=== PATIENT | female | born 1955 | race Caucasian/White ===

== ENCOUNTER 2018-02-13 17:58 | Observation (INO) ==
--- NOTE | 2018-02-13 21:30 | ED ---
HPI General Chief complaint: Psychiatric Symptoms Stated complaint: Psych Eval Time Seen by Provider: 02/13/18 21:14 History of Present Illness HPI narrative: 62-year-old female history of bipolar, dyslipidemia, GERD here for evaluation of altered mental status. Family at the bedside states patient has been aggressive, refusing to take her medications, uncooperative with family members, not living family to take care of her. She has history of stage III breast cancer and has a right sided Port-A-Cath but she currently refusing treatment. Family ran out of options and unable to take care of her at home and want to explore snf placement. Related Data Home Medications Medication Instructions Recorded Confirmed atorvastatin [Lipitor] 40 mg PO DAILY 02/13/18 02/13/18 benztropine 0.5 mg PO BID 02/13/18 02/13/18 fluoxetine 10 mg PO DAILY 02/13/18 02/13/18 hydroxyzine HCl 50 mg PO BID 02/13/18 02/13/18 hydroxyzine HCl 100 mg PO HS 02/13/18 02/13/18 lithium carbonate 300 mg TID 02/13/18 02/13/18 olanzapine 20 mg PO BID 02/13/18 02/13/18 ondansetron HCl [Zofran] 8 mg PO TID PRN 02/13/18 02/13/18 ranitidine HCl 150 mg PO BID 02/13/18 02/13/18 Previous Rx's Medication Instructions Recorded quetiapine [Seroquel] 25 mg PO BID #60 tab 02/15/18 Allergies Allergy/AdvReac Type Severity Reaction Status Date / Time trihexyphenidyl Allergy Severe Unverified 12/27/16 12:51 ARTANE Allergy Unknown Uncoded 01/20/03 17:18 NKA Allergy Unknown Uncoded 01/20/03 17:18 Review of Systems ROS: all other systems reviewed are negative [facility] Social History Social History Substance History: No History of Abuse Second Hand Smoke Exposure: No Smoking Status: Former smoker How Often Do You Have a Drink Containing Alcohol: Never Recent Travel in [facility] within the Last 8 Weeks: No Recent Out of Country Travel within the Last 8 Weeks: No Immunization History Tetanus Immunization: Unsure Hx Influenza Vaccine This Season: No Exam Narrative Exam Narrative: GENERAL: Loud, screaming in the ER, uncooperative. SKIN: Focused skin assessment warm/dry. HEAD: Atraumatic. Normocephalic. EYES: Pupils equal and round. No scleral icterus. No injection or drainage. ENT: No nasal bleeding or discharge. Mucous membranes pink and moist. NECK: Trachea midline. No JVD. CARDIOVASCULAR: Regular rate and rhythm. No murmur appreciated. RESPIRATORY: No accessory muscle use. Clear to auscultation. Breath sounds equal bilaterally. GASTROINTESTINAL: Abdomen soft, non-tender, nondistended. Hepatic and splenic margins not palpable. MUSCULOSKELETAL: No obvious deformities. No clubbing. No cyanosis. No edema. NEUROLOGICAL: Awake and alert. No obvious cranial nerve deficits. Motor grossly within normal limits. Normal speech. PSYCHIATRIC: Appropriate mood and affect; insight and judgment normal. Course Initial Documented Vital Signs Temperature 98.1 F 02/13/18 18:31 Pulse Rate 83 02/13/18 18:31 Respiratory Rate 19 02/13/18 18:31 Blood Pressure 133/59 L 02/13/18 18:31 Pulse Oximetry 98 02/13/18 18:31 Last Documented Vital Signs Temperature 98.7 F 02/15/18 15:46 Pulse Rate 91 H 02/15/18 15:46 Respiratory Rate 20 02/15/18 15:46 Blood Pressure 104/67 02/15/18 15:46 Pulse Oximetry 97 02/15/18 15:46 Medical Decision Making MDM Narrative Medical decision making narrative: 62 female here for snf placement, case management consult is done awaiting placement. 0900-In to see patient, she is telling me she "lost her other port and they can' t find it". She is delusional, but pleasant. Ate breakfast. PT request placed per case management request 11:55- Spoke with Dr. Cash Knox who placed Bedded outpatient request. 1313- Pt here for evaluation Medical Screen Exam Complete: Yes Emergency Medical Condition: Yes Lab Data Result diagrams: 02/13/18 21:56 02/13/18 21:56 Lab Results 02/13/18 02/13/18 02/13/18 Range/Units 21:56 21:56 21:56 WBC 5.0 (4.0-11.0) th/mm3 RBC 3.08 L (4.00-5.30) mil/mm3 Hgb 9.2 L (11.6-15.3) gm/dL Hct 27.7 L (35.0-46.0) % MCV 89.9 (80.0-100.0) fL MCH 30.0 (27.0-34.0) pg MCHC 33.3 (32.0-36.0) % RDW 14.1 (11.6-17.2) % Plt Count 192 (150-450) th/mm3 MPV 8.3 (7.0-11.0) fL Prelim Diff (Auto) Slide review pending Neut % (Auto) 68.7 (16.0-70.0) % Lymph % (Auto) 18.5 (9.0-44.0) % [place] % (Auto) 10.1 H (0.0-8.0) % Eos % (Auto) 1.8 (0.0-4.0) % Baso % (Auto) 0.9 (0.0-2.0) % Neut # (Auto) 3.5 (1.8-7.7) th/mm3 Lymph # (Auto) 0.9 L (1.0-4.8) th/mm3 [place] # (Auto) 0.5 (0.0-0.9) th/mm3 Eos # (Auto) 0.1 (0.0-0.4) th/mm3 Baso # (Auto) 0.0 (0.0-0.2) th/mm3 WBC Differential Manual diff final Seg Neuts % (Manual) 58 (16-70) % Band Neuts % (Manual) 10 H (0-6) % Lymphocytes % (Manual) 20 (9-44) % Monocytes % (Manual) 11 H (0-8) % Eosinophils % (Manual) 1 (0-4) % Abs Neuts (Manual) 3.4 (1.8-7.7) th/mm3 Differential Comment . Toxic Granulation 1+ H (None) Dohle Bodies Present H (None) Platelet Estimate Normal (Normal) Platelet Morphology Normal (Normal) Ovalocytes 1+ H (None) Keratocytes Occ H (None) PT 10.5 (9.8-11.6) sec INR 1.0 Ratio APTT 24.2 L (24.3-30.1) sec Sodium 139 (136-145) meq/L Potassium 3.6 (3.5-5.1) meq/L Chloride 106 (98-107) meq/L Carbon Dioxide 25.7 (21.0-32.0) meq/L Anion Gap 7 (5-15) meq/L BUN 8 (7-18) mg/dL Creatinine 0.77 (0.50-1.00) mg/dL Estimated GFR 76 L (>89) mL/min Random Glucose 173 H (74-106) mg/dL Calcium 8.3 L (8.5-10.1) mg/dL Total Bilirubin 0.2 (0.2-1.0) mg/dL AST 10 L (15-37) U/L ALT 16 (10-53) U/L Alkaline Phosphatase 105 (45-117) U/L Ammonia (11-32) mcmol/L Total Protein 6.9 (6.4-8.2) g/dL Albumin 3.6 (3.4-5.0) g/dL TSH 4.270 H (0.358-3.740) uIU/mL Urine Color (Yellw/Straw) Urine Clarity (Clear) Urine pH (5.0-8.5) Ur Specific [place] (1.002-1.035) Urine Protein (Neg-Trace) mg/dL Urine Glucose (UA) (Negative) mg/dL Urine Ketones (Negative) mg/dL Urine Occult Blood (Negative) Urine Nitrate (Negative) Urine Bilirubin (Negative) Urine Urobilinogen (Less than 2) mg/dL Ur Leukocyte Esterase (Negative) Urine WBC (0-5) /hpf Ur Squamous Epith Cells (0-5) /hpf Hyaline Casts (0-3) /lpf Micro UA Comment Ur Microscopic Review Urine Culture Comments Rice (0.5-1.5) meq/L 02/13/18 02/13/18 02/13/18 Range/Units 21:56 21:56 21:56 WBC (4.0-11.0) th/mm3 RBC (4.00-5.30) mil/mm3 Hgb (11.6-15.3) gm/dL Hct (35.0-46.0) % MCV (80.0-100.0) fL MCH (27.0-34.0) pg MCHC (32.0-36.0) % RDW (11.6-17.2) % Plt Count (150-450) th/mm3 MPV (7.0-11.0) fL Prelim Diff (Auto) Neut % (Auto) (16.0-70.0) % Lymph % (Auto) (9.0-44.0) % [place] % (Auto) (0.0-8.0) % Eos % (Auto) (0.0-4.0) % Baso % (Auto) (0.0-2.0) % Neut # (Auto) (1.8-7.7) th/mm3 Lymph # (Auto) (1.0-4.8) th/mm3 [place] # (Auto) (0.0-0.9) th/mm3 Eos # (Auto) (0.0-0.4) th/mm3 Baso # (Auto) (0.0-0.2) th/mm3 WBC Differential Seg Neuts % (Manual) (16-70) % Band Neuts % (Manual) (0-6) % Lymphocytes % (Manual) (9-44) % Monocytes % (Manual) (0-8) % Eosinophils % (Manual) (0-4) % Abs Neuts (Manual) (1.8-7.7) th/mm3 Differential Comment Toxic Granulation (None) Dohle Bodies (None) Platelet Estimate (Normal) Platelet Morphology (Normal) Ovalocytes (None) Keratocytes (None) PT (9.8-11.6) sec INR Ratio APTT (24.3-30.1) sec Sodium (136-145) meq/L Potassium (3.5-5.1) meq/L Chloride (98-107) meq/L Carbon Dioxide (21.0-32.0) meq/L Anion Gap (5-15) meq/L BUN (7-18) mg/dL Creatinine (0.50-1.00) mg/dL Estimated GFR (>89) mL/min Random Glucose (74-106) mg/dL Calcium (8.5-10.1) mg/dL Total Bilirubin (0.2-1.0) mg/dL AST (15-37) U/L ALT (10-53) U/L Alkaline Phosphatase (45-117) U/L Ammonia 24 (11-32) mcmol/L Total Protein (6.4-8.2) g/dL Albumin (3.4-5.0) g/dL TSH (0.358-3.740) uIU/mL Urine Color Straw (Yellw/Straw) Urine Clarity Clear (Clear) Urine pH 7.0 (5.0-8.5) Ur Specific [place] 1.004 (1.002-1.035) Urine Protein Negative (Neg-Trace) mg/dL Urine Glucose (UA) Negative (Negative) mg/dL Urine Ketones Negative (Negative) mg/dL Urine Occult Blood Negative (Negative) Urine Nitrate Negative (Negative) Urine Bilirubin Negative (Negative) Urine Urobilinogen Less than 2 (Less than 2) mg/dL Ur Leukocyte Esterase Trace H (Negative) Urine WBC 4 (0-5) /hpf Ur Squamous Epith Cells <1 (0-5) /hpf Hyaline Casts 1 (0-3) /lpf Micro UA Comment Culture not ind Ur Microscopic Review Not Reportable Urine Culture Comments Culture not ind Rice 0.9 (0.5-1.5) meq/L Imaging Data Radiologist's impression: Chest X-Ray 02/14/18 00:18 CONCLUSION: 1. No acute cardiopulmonary disease. Discharge Plan Discharge Disposition Patient Disposition: 30 Still Patient Discharge Condition Condition: Stable Discharge Order Discharge Orders: Discharge Order (Routine); Ordered 02/15/18 Ordered By: Eduardo Hager Discharge Details Anticipated Discharge Date: 02/15/18 Physicians Team ED Provider: Joselito Edgar ED Midlevel Provider: Cher Calderón Primary Care Provider: UNKNOWN, Attending Provider: Eduardo Hager Other Providers: Willy,Willy ; Eduardo Hager ; [facility]Ag[facility] ; Giselle Ivey Fernando B Status ED Status: Left Department Discharge Information Discharge Date/Time: 02/14/18 13:55
[2018-02-13 22:38] LABS: Bilirubin,Urine Negative (Negative); Clarity,Urine Clear (Clear); Color,Urine Straw (Yellw/Straw); Glucose,Urine (UA) Negative (Negative); Hyaline Casts,Urine 1 /lpf (0-3); Leukocyte Esterase,Urine Trace (Negative); Nitrite,Urine Negative (Negative); Specific Gravity,Urine 1.004 (1.002-1.035); Squamous Epithelial Cell,Urine <1 /hpf (0-5)
[2018-02-13 22:42] LABS: Baso % (Auto) 0.9 % (0.0-2.0); Eos # (Auto) 0.1 th/mm3 (0.0-0.4); Eos % (Auto) 1.8 % (0.0-4.0); Hematocrit 27.7 % (35.0-46.0); Hemoglobin 9.2 gm/dL (11.6-15.3); Lymph # (Auto) 0.9 th/mm3 (1.0-4.8); Lymph % (Auto) 18.5 % (9.0-44.0); Mean Corpuscular HGB Conc 33.3 % (32.0-36.0); Mean Corpuscular Volume 89.9 fL (80.0-100.0); Mean Platelet Volume 8.3 fL (7.0-11.0); Mono # (Auto) 0.5 th/mm3 (0.0-0.9); Mono % (Auto) 10.1 % (0.0-8.0); Neut # (Auto) 3.5 th/mm3 (1.8-7.7); Neut % (Auto) 68.7 % (16.0-70.0); Platelet Count 192 th/mm3 (150-450); Red Blood Count 3.08 mil/mm3 (4.00-5.30); Red Cell Distribution Width 14.1 % (11.6-17.2)
[2018-02-13 22:46] LABS: Alanine Aminotransferase 16 U/L (10-53); Albumin 3.6 g/dL (3.4-5.0); Anion Gap 7 meq/L (5-15); Aspartate Aminotransferase 10 U/L (15-37); Blood Urea Nitrogen 8 mg/dL (7-18); Calcium 8.3 mg/dL (8.5-10.1); Carbon Dioxide 25.7 meq/L (21.0-32.0); Chloride 106 meq/L (98-107); Glomerular Filtration Rate 76 mL/min (>89); Glucose,Random 173 mg/dL (74-106); Potassium 3.6 meq/L (3.5-5.1); Sodium 139 meq/L (136-145)
[2018-02-13 22:57] LABS: Alkaline Phosphatase 105 U/L (45-117); Total Protein 6.9 g/dL (6.4-8.2)
[2018-02-13 23:31] LABS: Eosinophils 1 % (0-4); Lymphocytes 20 % (9-44); Monocytes 11 % (0-8)
[2018-02-13 23:32] LABS: Platelet Estimate Normal (Normal); Platelet Morphology Normal (Normal)
[2018-02-13 23:33] LABS: Dohle Bodies Present; Ovalocytes 1+; Toxic Granulation 1+
[2018-02-14 00:04] LABS: Activated Partial Thrombo Time 24.2 sec (24.3-30.1); Prothrombin Time 10.5 sec (9.8-11.6)
--- NOTE | 2018-02-14 00:40 | XR ---
EXAM DATE: 02/14/2018 12:18 AM EDT AGE/SEX: 62 years / Female INDICATIONS: Altered mental status. CLINICAL DATA: This is the patient's initial encounter. Patient reports that signs and symptoms have been present for 1 day and indicates a pain score of Nonresponsive. MEDICAL/SURGICAL HISTORY: Carcinoma, breast. . Infusaport. COMPARISON: No prior exams available for comparison. FINDINGS: A single AP view of the chest demonstrates the lungs to be symmetrically aerated without evidence of mass, infiltrate or effusion. Right subclavian [id number] with tip in the central SVC. The cardiom ediastinal contours are unremarkable. Osseous structures are intact. CONCLUSION: 1. No acute cardiopulmonary disease. Electronically signed by: Josep Villegas MD 02/14/2018 12:38 AM EDT
[2018-02-14] MEDS ORDERED: Acetaminophen 325 MG Tablet PO PRN (11:52)
[2018-02-14] MEDS ORDERED: Bisacodyl 10 MG Supp RECTAL PRN (11:52)
--- NOTE | 2018-02-14 19:41 | P.CON ---
History of Present Illness Service: Hospitalist Reason for Consult: Placement Primary Care Provider: UNKNOWN History of Present Illness: Ms. Roberts is a pleasant 62-year-old female history of bipolar, dyslipidemia, GERD here for evaluation of altered mental status. I could not get much history from patient. Apparently, she has a history of stage III breast cancer, she has a port as well. She has refused treatments so far. Family is not able to take care of her and thus want her to be placed at a [facility]. Patient is currently hemodynamically stable. She is talking to herself but remains pleasant. No aggressive behavior. Review of Systems unobtainable due to mental condition PMFSH - History History Provided By: Patient, Family Member - Medical History Medical History: Medical History (Last Reviewed 02/14/18 @ 19:53 by Eduardo Hager DO) Breast cancer High cholesterol Port-A-Cath in place Schizophrenia - Surgical History Surgical History: Surgical History (Last Reviewed 02/14/18 @ 19:53 by Eduardo Hager DO) Hx of section - Tobacco History Second Hand Smoke Exposure: No Smoking Status: Former smoker - Alcohol History How Often Do You Have a Drink Containing Alcohol: Never - Substance Use History Substance History: No History of Abuse - Travel History Recent Travel in the [place] Within the Last 8 Weeks: No Recent Travel Out of the Country Within the Last 8 Weeks: No - Immunization History Tetanus Immunization: Unsure Hx Influenza Vaccine This Season: No Medications and Allergies Active Medications: Active Medications Acetaminophen (Tylenol) 650 mg PO Q4H PRN PRN Reason: Headache, fever, pain 1-4 Al Hydroxide/Mg Hydroxide (Milk Of Magnesia Liq) 30 ml PO Q12H PRN PRN Reason: Mild Constipation Bisacodyl (Dulcolax Supp) 10 mg RECTAL DAILY PRN PRN Reason: SEVERE CONSITIPATION Lactulose (Lactulose Liq) 30 ml PO DAILY PRN PRN Reason: SEVERE CONSITIPATION Ondansetron HCl (Zofran Inj) 4 mg IV.PUSH Q6H PRN PRN Reason: NAUSEA OR VOMITING Sennosides (Senokot) 17.2 mg PO Q12H PRN PRN Reason: Moderate Constipation Allergies Allergy/AdvReac Type Severity Reaction Status Date / Time trihexyphenidyl Allergy Severe Unverified 12/27/16 12:51 ARTANE Allergy Unknown Uncoded 01/20/03 17:18 NKA Allergy Unknown Uncoded 01/20/03 17:18 Home Medications Medication Instructions Recorded Confirmed Type atorvastatin [Lipitor] 40 mg PO DAILY 02/13/18 02/13/18 History benztropine 0.5 mg PO BID 02/13/18 02/13/18 History fluoxetine 10 mg PO DAILY 02/13/18 02/13/18 History hydroxyzine HCl 50 mg PO BID 02/13/18 02/13/18 History hydroxyzine HCl 100 mg PO HS 02/13/18 02/13/18 History lithium carbonate 300 mg TID 02/13/18 02/13/18 History olanzapine 20 mg PO BID 02/13/18 02/13/18 History ondansetron HCl [Zofran] 8 mg PO TID PRN 02/13/18 02/13/18 History ranitidine HCl 150 mg PO BID 02/13/18 02/13/18 History Physical Exam Vital signs: Vital Signs 02/14/18 08:18 02/14/18 15:51 Temperature 98.8 F Pulse Rate 74 78 Respiratory Rate 20 16 Blood Pressure 108/63 98/71 L Pulse Oximetry 98 98 Intake & Output 02/14/18 02/14/18 02/15/18 06:59 18:59 06:59 Intake Total 480 / 480 Balance 480 / 480 Weight 66.224 kg Intake: Oral 480 / 480 Other: # Voids 1 Weight On Admission 66.224 kg Narrative: GENERAL: Alert, oriented to self. Left sided chest port present. SKIN: Warm and dry. HEAD: Normocephalic. EYES: No scleral icterus. No injection or drainage. NECK: Supple, trachea midline. No JVD or lymphadenopathy. CARDIOVASCULAR: Regular rate and rhythm without murmurs, gallops, or rubs. RESPIRATORY: Breath sounds equal bilaterally. No accessory muscle use. GASTROINTESTINAL: Abdomen soft, non-tender, nondistended. MUSCULOSKELETAL: No cyanosis, or edema. BACK: Nontender without obvious deformity. No CVA tenderness. Assessment and Plan - Plan Ms. Roberts is a 62 year old female with a history of psychiatric disorders, breast cancer who was brought to the ED because family is unable to take care of her. Bipolar disorder History of Stage III breast cancer Family unable to take care of patient - Case management is working on possible placement - Will consult palliative care. - Hospice at a ch[facility] maybe an option for this patient. Full code. Will follow this patient PRN.
--- NOTE | 2018-02-15 11:19 | P.CONPAL ---
Consult Service: Palliative Care Requesting Physician: Eduardo Hager Reason for Consult: a. To assist with evaluation and management of symptoms including: Confusion, agitation b. To assist medical decision maker(s) with: better understanding of current medical conditions; weighing benefits/burdens of medical treatment options; making medical treatment decisions. Primary Care Provider: UNKNOWN History of Present Illness History of Present Illness: This is a 62-year old female brought to the emergency room by her family with a history of schizophrenia, hyperlipidemia, GERD and stage III breast cancer followed by Dr. Pierre in [place] who has lived in facilities for the past 40 years. She was recently in an [facility] that closed and she has been living with her daughter for the past month. Her daughter reports that she has started to refuse medications and become aggressive with the family, refusing to allow them to help take care of her. They can no longer manage her and home and are seeking placement in a snf facility as her needs have increased beyond the scope of an [facility]. Per my discussion with her sister, Jackie, she had a reasonably normal childhood but late in her teens became involved in heavy drug use which apparently caused permanent damage. Her sister states she has been diagnosed with schizophrenia by Dr. Aldana at [facility] back in 2008. She was previously treated at the [facility] as an inpatient and has been stable at the facility for some years on benztropine 0.5 mg twice daily, fluoxetine 10 mg daily, hydroxyzine 50 mg twice daily and 100 mg at bedtime, lithium carbonate 300 mg 3 times daily and olanzapine 20 mg p.o. twice daily. She had been under treatment for the breast cancer with chemotherapy but became unhappy with the side effects and symptoms of nausea, vomiting diarrhea and hair loss. She stated she no longer wished to take chemotherapy and the family has been compliant with that request. She has since started to refuse her oral psychotropic medications which has exacerbated her aggression and altered mental status at home. Clinical findings on admission: * WBC 5.0, hemoglobin 9.2, hematocrit 27.7, platelets 192, prothrombin time 10.5 , INR 1.0, APTT 24.2, sodium 139, potassium 3.6, BUN 8, creatinine 0.77, random glucose 173, calcium 8.3, total bilirubin 0.2, AST 10, ALT 16, alk phos 105, total protein 6.9, albumin 3.6, TSH 4.270, urinalysis was negative for any signs of infection, culture not indicated, lithium 0.9. * Chest x-ray showed no acute cardiopulmonary disease. Past medical history Hyperlipidemia Prediabetes Breast cancer stage III Schizophrenia Past surgical history section x2 Tonsillectomy Social history Quit smoking about 2 years ago but has smoked 1 pack/day since she was a teenager. Heavy illicit drug use in her late teens early 20s but has been in a facility since that time with no illicit drug use. Heavy alcohol use in her late teens and early 20s with no use since that time. Family history mother at age 59 from COPD Father in his mid to late 70s end-stage renal disease and cardiovascular disease. . Function/Cognitive Trajectory: Cognitive and behavioral function took a sharp decline in her 20s secondary to heavy drug abuse and she has remained altered since. She has been living in an assisted living facility for many years as she has been judged by psychiatry to be not capacitated for decision-making. She had been receiving treatment for breast cancer but has stopped approximately 1 month ago secondary to the adverse symptoms of nausea, vomiting, diarrhea and hair loss. . Review of Systems Patient is confused and the ROS may be unreliable. A 12 part ROS taken as best as possible from medical record and available family. Neurologic: Reports confusion Psychiatric: Reports irritability PMFSH - History History Provided By: Patient, Family Member - Medical History Medical History: Medical History (Last Reviewed 02/15/18 @ 09:09 by Shun Royal) Breast cancer High cholesterol Port-A-Cath in place Schizophrenia - Surgical History Surgical History: Surgical History (Last Reviewed 02/15/18 @ 09:09 by Shun Royal) Hx of section - Tobacco History Second Hand Smoke Exposure: No Smoking Status: Former smoker - Alcohol History How Often Do You Have a Drink Containing Alcohol: Never - Substance Use History Substance History: No History of Abuse - Travel History Recent Travel in the [place] Within the Last 8 Weeks: No Recent Travel Out of the Country Within the Last 8 Weeks: No - Immunization History Tetanus Immunization: Unsure Hx Influenza Vaccine This Season: No Medications and Allergies Active Medications: Active Medications Acetaminophen (Tylenol) 650 mg PO Q4H PRN PRN Reason: Headache, fever, pain 1-4 Al Hydroxide/Mg Hydroxide (Milk Of Magnesia Liq) 30 ml PO Q12H PRN PRN Reason: Mild Constipation Bisacodyl (Dulcolax Supp) 10 mg RECTAL DAILY PRN PRN Reason: SEVERE CONSITIPATION Lactulose (Lactulose Liq) 30 ml PO DAILY PRN PRN Reason: SEVERE CONSITIPATION Ondansetron HCl (Zofran Inj) 4 mg IV.PUSH Q6H PRN PRN Reason: NAUSEA OR VOMITING Sennosides (Senokot) 17.2 mg PO Q12H PRN PRN Reason: Moderate Constipation Allergies Allergy/AdvReac Type Severity Reaction Status Date / Time trihexyphenidyl Allergy Severe Unverified 12/27/16 12:51 ARTANE Allergy Unknown Uncoded 01/20/03 17:18 NKA Allergy Unknown Uncoded 01/20/03 17:18 Home Medications Medication Instructions Recorded Confirmed Type atorvastatin [Lipitor] 40 mg PO DAILY 02/13/18 02/13/18 History benztropine 0.5 mg PO BID 02/13/18 02/13/18 History fluoxetine 10 mg PO DAILY 02/13/18 02/13/18 History hydroxyzine HCl 50 mg PO BID 02/13/18 02/13/18 History hydroxyzine HCl 100 mg PO HS 02/13/18 02/13/18 History lithium carbonate 300 mg TID 02/13/18 02/13/18 History olanzapine 20 mg PO BID 02/13/18 02/13/18 History ondansetron HCl [Zofran] 8 mg PO TID PRN 02/13/18 02/13/18 History ranitidine HCl 150 mg PO BID 02/13/18 02/13/18 History Advance Directives Living Will: Yes Healthcare Surrogate: Yes Health Care Surrogate Name and Number: Erica Galaviz (daughter), chase Galaviz Physical Exam Vital Signs: Vital Signs - 24 hr 02/14/18 15:51 02/15/18 00:00 02/15/18 04:00 Temperature 98.8 F 97.6 F 98.7 F Pulse Rate 78 65 70 Respiratory Rate 16 18 16 Blood Pressure 98/71 L 93/50 L 92/56 L Pulse Oximetry 98 96 94 L 02/15/18 07:41 Temperature 98.3 F Pulse Rate 63 Respiratory Rate 16 Blood Pressure 81/45 L Pulse Oximetry 96 I&O: Intake & Output 02/13/18 02/14/18 02/15/18 02/16/18 06:59 06:59 06:59 06:59 Intake Total 480 / 480 Output Total 200 / 200 Balance 280 / 280 Weight 146 lb 146 lb 2.664 oz Physical Exam: CONSTITUTIONAL/GENERAL: This is a thin patient lying in bed with the emesis bag up to her mouth, in no acute distress. TUBES/LINES/DRAINS: PIV SKIN: No jaundice, rashes, or lesions. Ecchymoses on upper extremities. No wounds seen anteriorly. Skin temperature appropriate. Not diaphoretic. HEAD: Atraumatic. Normocephalic. EYES: Pupils equal and round and reactive. Extraocular motions intact. No scleral icterus. No injection or drainage. Fundi not examined. ENT: Hearing grossly normal. Nose without bleeding or purulent drainage. Throat without visible erythema, exudates, masses, or lesions. NECK: Trachea midline. Supple, nontender. No palpable thyroid enlargement or nodularity. CARDIOVASCULAR: Regular rate and rhythm without murmurs, gallops, or rubs. No JVD. Peripheral pulses symmetric. RESPIRATORY/CHEST: Symmetric, unlabored respirations. Clear to auscultation. Breath sounds equal bilaterally. No wheezes, rales, or rhonchi. GASTROINTESTINAL: Abdomen soft, non-tender, nondistended. No hepato-splenomegaly , or palpable masses. No guarding. Bowel sounds present. GENITOURINARY: Without palpable bladder distension. MUSCULOSKELETAL: Extremities without clubbing, cyanosis, or edema. No joint tenderness or effusion noted. No calf tenderness. No mottling or clubbing. LYMPHATICS: No palpable cervical or supraclavicular adenopathy. NEUROLOGICAL: Awake and alert. Motor and sensory grossly within normal limits. Follows commands. Oriented to self. Answers to questions make no sense. PSYCHIATRIC: Smiling, animated, cooperative. . Diagnostic Tests Laboratory: Laboratory Results - last 72 hr 02/13/18 02/13/18 02/13/18 21:56 21:56 21:56 WBC 5.0 RBC 3.08 L Hgb 9.2 L Hct 27.7 L MCV 89.9 MCH 30.0 MCHC 33.3 RDW 14.1 Plt Count 192 MPV 8.3 Prelim Diff (Auto) Slide review pending Neut % (Auto) 68.7 Lymph % (Auto) 18.5 [place] % (Auto) 10.1 H Eos % (Auto) 1.8 Baso % (Auto) 0.9 Neut # (Auto) 3.5 Lymph # (Auto) 0.9 L [place] # (Auto) 0.5 Eos # (Auto) 0.1 Baso # (Auto) 0.0 WBC Differential Manual diff final Seg Neuts % (Manual) 58 Band Neuts % (Manual) 10 H Lymphocytes % (Manual) 20 Monocytes % (Manual) 11 H Eosinophils % (Manual) 1 Abs Neuts (Manual) 3.4 Differential Comment . Toxic Granulation 1+ H Dohle Bodies Present H Platelet Estimate Normal Platelet Morphology Normal Ovalocytes 1+ H Keratocytes Occ H PT 10.5 INR 1.0 APTT 24.2 L Sodium 139 Potassium 3.6 Chloride 106 Carbon Dioxide 25.7 Anion Gap 7 BUN 8 Creatinine 0.77 Estimated GFR 76 L Random Glucose 173 H Calcium 8.3 L Total Bilirubin 0.2 AST 10 L ALT 16 Alkaline Phosphatase 105 Ammonia Total Protein 6.9 Albumin 3.6 TSH 4.270 H Urine Color Urine Clarity Urine pH Ur Specific [place] Urine Protein Urine Glucose (UA) Urine Ketones Urine Occult Blood Urine Nitrate Urine Bilirubin Urine Urobilinogen Ur Leukocyte Esterase Urine WBC Ur Squamous Epith Cells Hyaline Casts Micro UA Comment Ur Microscopic Review Urine Culture Comments [place] 02/13/18 02/13/18 02/13/18 21:56 21:56 21:56 WBC RBC Hgb Hct MCV MCH MCHC RDW Plt Count MPV Prelim Diff (Auto) Neut % (Auto) Lymph % (Auto) [place] % (Auto) Eos % (Auto) Baso % (Auto) Neut # (Auto) Lymph # (Auto) [place] # (Auto) Eos # (Auto) Baso # (Auto) WBC Differential Seg Neuts % (Manual) Band Neuts % (Manual) Lymphocytes % (Manual) Monocytes % (Manual) Eosinophils % (Manual) Abs Neuts (Manual) Differential Comment Toxic Granulation Dohle Bodies Platelet Estimate Platelet Morphology Ovalocytes Keratocytes PT INR APTT Sodium Potassium Chloride Carbon Dioxide Anion Gap BUN Creatinine Estimated GFR Random Glucose Calcium Total Bilirubin AST ALT Alkaline Phosphatase Ammonia 24 Total Protein Albumin TSH Urine Color Straw Urine Clarity Clear Urine pH 7.0 Ur Specific [place] 1.004 Urine Protein Negative Urine Glucose (UA) Negative Urine Ketones Negative Urine Occult Blood Negative Urine Nitrate Negative Urine Bilirubin Negative Urine Urobilinogen Less than 2 Ur Leukocyte Esterase Trace H Urine WBC 4 Ur Squamous Epith Cells <1 Hyaline Casts 1 Micro UA Comment Culture not ind Ur Microscopic Review Not Reportable Urine Culture Comments Culture not ind [place] 0.9 Result Diagrams: 02/13/18 21:56 02/13/18 21:56 Imaging: Chest X-Ray 02/14/18 00:18 CONCLUSION: 1. No acute cardiopulmonary disease. Patient/Family Conference Present at Family Conference: Spoke with her sister, Cindy Penn via telephone and was advised that the daughter, Erica, is listed as the healthcare surrogate primary and that Cindy Penn is the alternate healthcare surrogate. I have requested that the family supply us with that paperwork. The patient did give to 2 daughters, Erica and Bertha, however due to her mental disability she was unable to care for them and both daughters were adopted by her sister, Cindy Penn as children. Without the healthcare surrogate, [place] statutes would dictate that the sister Cindy Penn would be the proxy decision-maker, however Cindy Penn is deferring to Erica, as she states she is the primary healthcare surrogate. All family members are, however , working together harmonious decision-making. We discussed discharge plans and the family is requesting discharge to a [facility] near them and a list of names has been provided to me to include [place], [place], [place], [facility], [place] and [place]. These names have been transmitted to case management to initiate referrals. Call also placed to daughter, Erica, and am pending a return call. Palliative care purpose and focus was explored as well as the below listed items. Palliative care contact information was provided for any further questions or concerns. . Family Conference Location: Telephone Issues Discussed: * Palliative care role, purpose, approach * Additional medical, psychosocial, and spiritual history * Patients general health, functional status, and cognitive changes in the months leading up to the current hospitalization * Patient/family understanding of the current medical problems * Patient/family understanding of prognosis * Patients goals of care as best understood from advance directives and/or conversations and/or values * Current medical treatment options and benefits/burdens of those options * Likely scenarios comparing ongoing aggressive care with a transition to comfort measures only * Questions answered to the best of my ability * Palliative care contact information provided Assessment and Plan - Disease Oriented Problem List (1) Schizophrenia (2) Stage III breast cancer in female (3) GERD (gastroesophageal reflux disease) (4) Hyperlipidemia Pertinent Non-Medical Issues: Psychosocial: She was born in [place], [place] and had 2 daughters, which were adopted by her sister as patient's mental status made her incapable of caring for them. She was never and has lived in an institutional facility for the last 40 years. Spiritual: Scientologist. Legal: Reportedly has living will and healthcare surrogate, however those forms have not yet been made available. Ethical issues impacting care: Patient is not capacitated for her own decision- making per previous consultation by psychiatry. . Important Contacts: Daughter: Erica Galaviz Sister: Cindy Galaviz . Prognosis: Her prognosis is guarded. She reportedly has stage III breast cancer and has recently discontinued chemotherapy. The family is requesting hospice services to follow patient at a facility, once accepted. Her sister states that she had a living will stating that she would not wish to be resuscitated, however also specifies that her daughter Erica is the primary healthcare surrogate, so no CODE STATUS can be changed until communication is established with Erica. At this time she remains in FULL CODE pending that contact. She would be an appropriate hospice candidate as she is no longer seeking treatment for her breast cancer. . Code Status: Full Code (By default) Plan: PLAN: Legal decision maker: Patient is not capacitated to make her own decisions does not believe that she will ever regain capacity. Her daughters were both adopted by her sister as children, so are legally no longer her children. She was never and has one half sister, Cindy Penn, who states that the patient has completed a healthcare surrogate naming her daughter, Erica, as the primary HCS and her half-sister as the alternate. As all the family is working cooperatively together, there appears to be no conflict. Until receipt of the healthcare surrogate, by [place] statutes the half sister, Cindy Penn, would be the legal decision maker. Goals: To be determined CODE STATUS: FULL CODE by default SYMPTOMS: * Confusion: Patient was previously taking benztropine 0.5 mg p.o. twice daily, fluoxetine 10 mg p.o. daily, hydroxyzine 50 mg p.o. twice daily and 100 mg p.o. at bedtime, lithium carbonate 300 mg 3 times daily and olanzapine 20 mg p.o. twice daily. These medications have not been resumed since admission. Psychiatry consultation has been requested to evaluate medications prior to initiation. [place] level is within therapeutic limits. Her confusion is chronic present since about age 20. Patient has been in an institutional facility 40 years. * Agitation: Likely related to noncompliance with medications but could also indicate metastasis of her breast cancer to the brain. No studies are available to assess that, and as the patient is refusing treatment, that may be a moot point. Pending psychiatry evaluation for medication and capacity evaluation for further therapy. No further recommendations at this time. SUMMARY This is a 62-year-old female with schizophrenia, remote history of heavy drug and alcohol abuse, stage III breast cancer off chemotherapy since 1 month ago admitted for placement in snf facility as she can no longer be managed by the family. She had previously lived in an [facility] for the prior 40 years but the [facility] closed rendering the patient homeless. She has lived with her daughter for the last month and is becoming more agitated and aggressive behavior. She is intermittently refusing medications at home, but is not capacitated for healthcare decision making he is psychiatry consultation by Dr. Aldana. As she is refusing treatment for stage III breast cancer and the family is amenable to allowing her to discontinue treatment, she would be appropriate for hospice if goals were consistent. Palliative care will continue to follow the patient during hospital course as condition evolves, to assist patient/decision-maker with understanding of their medical conditions, weighing benefits/burdens of treatment options, for clarification of goals of treatment. Additionally will assist with any symptoms of palliative concern. . Appreciation Thank you for the opportunity to participate in the care of Jenae Roberts. Attestation Attestation: To help prompt me to consider important information that might be impacting today's encounter and assessment, information from prior notes written by myself or my colleagues may have been "brought forward" into today's note. My signature on this note, however, is an attestation that I personally performed the exam, history, and/or decision-making noted today, and, unless otherwise indicated, the interactions with patient, family, and staff as well as the review of records all occurred today. I also attest that the listed assessment and stated plan reflect my best clinical judgment today based on the combination of historical information, prior notes, and today's exam/ interactions. When time spent is documented, it refers only to time spent today by the signer, or if indicated, combined time spent today by collaborating physician/nurse practitioner. .
--- NOTE | 2018-02-15 13:24 | P.CONPSY ---
<Vlad Del Castillo - Last Filed: 02/15/18 13:26> Provisional Diagnosis Admission Date: February 14, 2018 11:26 [place] I.: Altered Mental Status, Schizophrenia, Bipolar Disorder [place] III.: Breast Cancer (Stage III), High Cholesterol [place] IV.: Hx of Substance Abuse - Drug and Alcohol History of Present Illness Service: Psych Consult Reason for Consult: Hx of Bipolar Disorder Primary Care Provider: UNKNOWN Chief Complaint: Hx of Bipolar Disorder, Schizophrenia History of Present Illness: Ms. Roberts is a 62yo Female who presents in the ED with Altered Mental Status in the context of hx of Schizophrenia and Bipolar Disorder; PMHx Stage III Breast Cancer, GERD, High Cholesterol, Schizophrenia, Bipolar Disorder , and Hx of Substance Abuse; Treated with Ensign 300mg TID, Olanzapine 20mg BID , Fluoxetine 10mg qD, Benztropine 0.5mg BID, Hydroxyzine 50mg BID, Atorvastatin 40mg qD, Ranitidine 150mg BID prn, Ondansetron 8mg TID prn; Domicile with Daughter (Erica) for the last month, before that has lived in [facility] for many years. On 02/13/18 she presented to [place] ED brought in by family due to Altered Mental Status. Family at bedside at the time reported that she denied chemotherapy treatment secondary to side effects one month ago and is now refusing Psychotropic medications as well. The family reports they are no longer able to care for her due to the complexity of her medical conditions and mood disturbances that include agitation, aggression, and noncompliance with Psychotropics and would like her placed in a senior living nursing home facility upon discharge from hospital. Patient states that she currently feels "Better, I feel all of the moods". Patient denies any medical or psychiatric conditions, previous psychiatric hospitalization, hallucinations, delusions, SI/HI. Unable to obtain ROS at this time. Call was placed to both Erica (daughter) and Jackie ( sister) for collateral information but was unsuccessful. Reviewed Palliative Care Note where Jackie (sister) was reached by phone and more accurate history was provided. Review of Systems unobtainable due to mental condition, unobtainable due to mental status PMFSH - History History Provided By: Patient, Family Member - Medical / Surgical Hx Neg / Unobtainable Medical Problems Denied: Yes - Medical History Medical History: Medical History (Last Reviewed 02/15/18 @ 09:09 by Shun Royal) Breast cancer High cholesterol Port-A-Cath in place Schizophrenia - Surgical History Surgical History: Surgical History (Last Reviewed 02/15/18 @ 09:09 by Shun Royal) Hx of section - Tobacco History Second Hand Smoke Exposure: No Smoking Status: Former smoker - Alcohol History How Often Do You Have a Drink Containing Alcohol: Never - Substance Use History Substance History: No History of Abuse - Travel History Recent Travel in the [place] Within the Last 8 Weeks: No Recent Travel Out of the Country Within the Last 8 Weeks: No - Immunization History Tetanus Immunization: Unsure Hx Influenza Vaccine This Season: No Medications and Allergies Allergies Allergy/AdvReac Type Severity Reaction Status Date / Time trihexyphenidyl Allergy Severe Unverified 12/27/16 12:51 ARTANE Allergy Unknown Uncoded 01/20/03 17:18 NKA Allergy Unknown Uncoded 01/20/03 17:18 Home Medications Medication Instructions Recorded Confirmed Type atorvastatin [Lipitor] 40 mg PO DAILY 02/13/18 02/13/18 History benztropine 0.5 mg PO BID 02/13/18 02/13/18 History fluoxetine 10 mg PO DAILY 02/13/18 02/13/18 History hydroxyzine HCl 50 mg PO BID 02/13/18 02/13/18 History hydroxyzine HCl 100 mg PO HS 02/13/18 02/13/18 History lithium carbonate 300 mg TID 02/13/18 02/13/18 History olanzapine 20 mg PO BID 02/13/18 02/13/18 History ondansetron HCl [Zofran] 8 mg PO TID PRN 02/13/18 02/13/18 History ranitidine HCl 150 mg PO BID 02/13/18 02/13/18 History Active Medications: Active Medications Acetaminophen (Tylenol) 650 mg PO Q4H PRN PRN Reason: Headache, fever, pain 1-4 Al Hydroxide/Mg Hydroxide (Milk Of Magnesia Liq) 30 ml PO Q12H PRN PRN Reason: Mild Constipation Bisacodyl (Dulcolax Supp) 10 mg RECTAL DAILY PRN PRN Reason: SEVERE CONSITIPATION Lactulose (Lactulose Liq) 30 ml PO DAILY PRN PRN Reason: SEVERE CONSITIPATION Ondansetron HCl (Zofran Inj) 4 mg IV.PUSH Q6H PRN PRN Reason: NAUSEA OR VOMITING Sennosides (Senokot) 17.2 mg PO Q12H PRN PRN Reason: Moderate Constipation Exam Vital signs: Vital Signs 02/14/18 15:51 02/15/18 00:00 02/15/18 04:00 Temperature 98.8 F 97.6 F 98.7 F Pulse Rate 78 65 70 Respiratory Rate 16 18 16 Blood Pressure 98/71 L 93/50 L 92/56 L Pulse Oximetry 98 96 94 L 02/15/18 07:41 02/15/18 12:19 Temperature 98.3 F 98.9 F Pulse Rate 63 80 Respiratory Rate 16 16 Blood Pressure 81/45 L 105/64 Pulse Oximetry 96 98 Intake & Output 02/14/18 02/15/18 02/15/18 18:59 06:59 18:59 Intake Total 480 / 480 Output Total 200 / 200 Balance 480 / 480 -200 / -200 Weight 66.224 kg 66.3 kg Intake: Oral 480 / 480 Output: Urine 200 / 200 Other: # Voids 1 Weight On Admission 66.224 kg - Constitutional no acute distress, thin, cooperative - Routine HEENT Exam Head: Present: normocephalic, atraumatic - Routine Neurological Exam Present: alert (Oriented X1 (place)) - Detailed Psychiatric Exam Mood and affect: Present: euphoric ("Better, I feel all of the moods.", Elevated Mood, Mood Congruent) Thought process: Present: illogical, tangential Mental Status Examination Appearance: Appropriate (Was sleeping in ED, laying in bed, dressed in hospital gown, knitted ski cap) Consciousness: Alert, Highly distractible Orientation: Person (Orienated x2), Place Speech: Rapid Language: Adequate Fund of Knowledge: Poor Attention and Concentration: Easily distracted (Disorganized, Distractibility) Memory: Impaired (Denies Medical and Psychiatric Conditions) Mood: Appropriate, Good ("Better, I feel all of the moods.") Affect: Appropriate (Euphoric, Drake Happy) Thought Process & Associations: Disorganized, Tangential Thought Content: Appropriate Hallucination Type: None Delusion Type: None Suicidal Ideation: No Suicidal Plan: No Suicidal Intention: No Homicidal Ideation: No Homicidal Plan: No Homicidal Intention: No Insight: Poor Judgment: Poor Assessment and Plan - Assessment (1) Schizophrenia Code(s): F20.9 - Schizophrenia, unspecified Status: Acute (2) Altered mental status Code(s): R41.82 - Altered mental status, unspecified Status: Acute - Plan Plan: Estimated LOS: [] days On our psychiatric evaluation of the patient, Ms. Roberts appears pleasant but unable to provide accurate details of her current or past medical history due to disorganization and tangentiality. However, her psychiatric symptoms seem to be more baseline than acute/new onset especially in the setting of noncompliance with Psychotropic medications. She does not appear to be acutely psychotic and does not appear to be a danger to herself or others. For these reasons, we do not believe the patient meets criteria for involuntary psychiatric hospitalization. Meds: Continue Psychotropic Medications as prescribed Ensign Carbonate 300mg TID, Olanzapine 20mg BID, Fluoxetine 10mg once daily, Benztropine 0.5mg BID, Hydroxyzine 50mg BID. Labs: check Serum Ensign every 4 days while on medical floor (Normal = 0.5-1.0). Call was placed to both Erica (daughter) and Jackie (sister) but was unsuccessful. More detailed history was obtained per Palliative Care Note in which info was provided by the patient's sister, Jackie. We agree that the patient would best be served by placement in director long term care care facility that can meet her medical needs. Follow up with Palliative Care team. <Eusebio Burns - Last Filed: 02/15/18 14:07> Provisional Diagnosis Admission Date: February 14, 2018 11:26 History of Present Illness Primary Care Provider: UNKNOWN History of Present Illness: I have seen and examined this patient along with medical student Vlad Del Castillo, high review his documentation, add corrections. In our examination the patient was found superficially cooperative, disorganized , with poor contact with the reality, tangential speech which seems to be baseline for her schizophrenia. She reports good mood, she was in a good spirit , denies suicidal and homicidal ideation, denies visual and auditory hallucinations. No agitation or aggressive behavior present at this moment. PPHx: Schizophrenia, Bipolar Disorder, and Hx of Substance Abuse; Treated with Ensign 300mg TID, Olanzapine 20mg BID, Fluoxetine 10mg qD, Benztropine 0.5mg BID, Hydroxyzine 50mg BID, Atorvastatin 40mg qD, Ranitidine 150mg BID prn, Ondansetron 8mg TID prn; PMHx:tage III Breast Cancer, GERD, High Cholesterol Substance Hx: History of polysubstance Social Hx: Domicile with Daughter (Erica) for the last month, before that has lived in [facility] for many years [facility] - Medical History Medical History: Medical History (Last Reviewed 02/15/18 @ 09:09 by Shun Royal) Breast cancer High cholesterol Port-A-Cath in place Schizophrenia - Surgical History Surgical History: Surgical History (Last Reviewed 02/15/18 @ 09:09 by Shun Royal) Hx of section Medications and Allergies Active Medications: Active Medications Acetaminophen (Tylenol) 650 mg PO Q4H PRN PRN Reason: Headache, fever, pain 1-4 Al Hydroxide/Mg Hydroxide (Milk Of Magnesia Liq) 30 ml PO Q12H PRN PRN Reason: Mild Constipation Bisacodyl (Dulcolax Supp) 10 mg RECTAL DAILY PRN PRN Reason: SEVERE CONSITIPATION Lactulose (Lactulose Liq) 30 ml PO DAILY PRN PRN Reason: SEVERE CONSITIPATION Ondansetron HCl (Zofran Inj) 4 mg IV.PUSH Q6H PRN PRN Reason: NAUSEA OR VOMITING Sennosides (Senokot) 17.2 mg PO Q12H PRN PRN Reason: Moderate Constipation Exam Vital signs: Vital Signs 02/14/18 15:51 02/15/18 00:00 02/15/18 04:00 Temperature 98.8 F 97.6 F 98.7 F Pulse Rate 78 65 70 Respiratory Rate 16 18 16 Blood Pressure 98/71 L 93/50 L 92/56 L Pulse Oximetry 98 96 94 L 02/15/18 07:41 02/15/18 12:19 Temperature 98.3 F 98.9 F Pulse Rate 63 80 Respiratory Rate 16 16 Blood Pressure 81/45 L 105/64 Pulse Oximetry 96 98 Intake & Output 02/14/18 02/15/18 02/15/18 18:59 06:59 18:59 Intake Total 480 / 480 Output Total 200 / 200 Balance 480 / 480 -200 / -200 Weight 66.224 kg 66.3 kg Intake: Oral 480 / 480 Output: Urine 200 / 200 Other: # Voids 1 Weight On Admission 66.224 kg Mental Status Examination Thought Content: Bizarre thinking Assessment and Plan - Plan Plan: Estimated LOS: [] days I agree and concur with medical student, Vlad Del Castillo, assessment and plan. I will add that if the patient becomes agitated and aggressive in the medical floor, Haldol 1-2 mg IM every 8 hours as needed aggressive behavior and agitation can be prescribed. Try to avoid deliriogenic medication as much as possible: Anticholinergics/benzodiazepine/narcotics. Frequent reorientation, familiar faces around, sensory stimulation appropriate light in the room are initially recommended to avoid delirium, since patient has a high risk. No admission indicated at this moment. Justification for Continued Inpatient Stay: No admission is indicated in this patient.
[2018-02-15] MEDS ORDERED: QUEtiapine 25 MG Tablet PO ONE (14:47)
[2018-02-15 15:50] VITALS: BP 104/67; PULSE 91; RESP 20; TEMP 98.7; O2SAT 97
--- NOTE | 2018-02-15 15:52 | P.DS ---
Date of admission: 02/14/18 11:26 Primary care physician: UNKNOWN Attending physician on discharge: Eduardo Hager Anticipated date of discharge: 02/15/18 Brief History from admission: Ms. Roberts is a pleasant 62-year-old female history of bipolar, dyslipidemia, GERD here for evaluation of altered mental status. I could not get much history from patient. Apparently, she has a history of stage III breast cancer, she has a port as well. She has refused treatments so far. Family is not able to take care of her and thus want her to be placed at a retirement. Patient is currently hemodynamically stable. She is talking to herself but remains pleasant. No aggressive behavior. DS: Medications - Discharge Medications Prescriptions: quetiapine [Seroquel] 25 mg PO BID #60 tab DS: Summary Hospital Course: Ms. Roberts is a pleasant 62-year-old female history of bipolar, dyslipidemia, GERD here for evaluation of altered mental status. I could not get much history from patient. Apparently, she has a history of stage III breast cancer, she has a port as well. She has refused treatments so far. Family is not able to take care of her and thus want her to be placed at a retirement. Patient is currently hemodynamically stable. She is talking to herself but remains pleasant. No aggressive behavior. Patient was admitted as bedded outpatient status. We consulted palliative care as well as psychiatry. Palliative care, after discussing with family arranged hospice consult as well. Patient's family decided to go with hospice care center. Patient was subsequently discharged on 02/15/2018 to hospice care center. We started patient on Seroquel for agitation. - Time Spent with Patient Total time spent providing and/or coordinating discharge services: Less than 30 minutes - Quality: VTE Deep Vein Thrombosis/Pulmonary Embolism Present on Admission: No Exam Vital signs: Vital Signs 02/14/18 15:51 02/15/18 00:00 02/15/18 04:00 Temperature 98.8 F 97.6 F 98.7 F Pulse Rate 78 65 70 Respiratory Rate 16 18 16 Blood Pressure 98/71 L 93/50 L 92/56 L Pulse Oximetry 98 96 94 L 02/15/18 07:41 02/15/18 12:19 02/15/18 15:46 Temperature 98.3 F 98.9 F 98.7 F Pulse Rate 63 80 91 H Respiratory Rate 16 16 20 Blood Pressure 81/45 L 105/64 104/67 Pulse Oximetry 96 98 97 Intake & Output 02/14/18 02/15/18 02/15/18 18:59 06:59 18:59 Intake Total 480 / 480 Output Total 200 / 200 Balance 480 / 480 -200 / -200 Weight 66.224 kg 66.3 kg Intake: Oral 480 / 480 Output: Urine 200 / 200 Other: # Voids 1 Weight On Admission 66.224 kg Narrative: GENERAL: Alert, oriented to self. Left sided chest port present. SKIN: Warm and dry. HEAD: Normocephalic. EYES: No scleral icterus. No injection or drainage. NECK: Supple, trachea midline. No JVD or lymphadenopathy. CARDIOVASCULAR: Regular rate and rhythm without murmurs, gallops, or rubs. RESPIRATORY: Breath sounds equal bilaterally. No accessory muscle use. GASTROINTESTINAL: Abdomen soft, non-tender, nondistended. MUSCULOSKELETAL: No cyanosis, or edema. BACK: Nontender without obvious deformity. No CVA tenderness. Results Procedures completed during hospitalization: None. - Impressions ITS Impressions Chest X-Ray 02/14/18 00:18 CONCLUSION: 1. No acute cardiopulmonary disease. Discharge Plan - Discharge Disposition Patient Disposition: 51 Hospice/Med Facility - Discharge Condition Condition: Stable - Discharge Order Discharge Orders: Discharge Order (Routine); Ordered 02/15/18 Ordered By: Eduardo Hager - Discharge Details Anticipated Discharge Date: 02/15/18 - Physicians Team Primary Care Provider: UNKNOWN, Attending Provider: Eduardo Hager Other Providers: [employer] ; Eduardo Hager, DO ; [facility],[place] ; Gieslle Ivey MD ; Eusebio Burns MD
[2018-02-15] MEDS ORDERED: QUEtiapine 25 MG Tablet PO SCH (21:00)
== END 2018-02-15 17:44 | disposition hospice, inpatient (51) ==
LOC: NEDA 17:58 → NEPD 17:58 → NEDA 02-14 13:55 → NEPGCP 02-14 14:03
PROVIDERS: ADMIT Hospitalist; ATTEND Hospitalist